=== PATIENT | female | born 1995 | race Caucasian/White ===

== ENCOUNTER 2016-11-30 21:48 | Inpatient (IN) | payer OTHER ==
[~2016-11-30] VITALS: Ht 154.9 cm; Wt 72.2 kg
[2016-11-30 22:50] LABS: HEMATOCRIT 44.8 % (36.0-46.0); MCH 28.5 PG (29.0-34.0); MCHC 33.3 G/DL (30.0-36.0); MCV 85.7 FL (83-99); MEAN PLAT.VOLUME 10.4 uM^3 (9.5-12.4); PLATELET COUNT 234 K/uL (156-360); RBC DIS.WIDTH-CV 13.7 % (11.8-14.6); RBC DIS.WIDTH-SD 42.5 % (39-53); RED BLOOD COUNT 5.23 M/uL (3.80-5.20); WHITE BLOOD COUNT 6.9 K/uL (4.1-10.2)
[2016-11-30 23:06] LABS: CHLORIDE 106 mEq/L (99-109); SODIUM 141 mEq/L (136-147)
[2016-11-30 23:08] LABS: GLUCOSE 101 mg/dL (70-99)
[2016-11-30 23:09] LABS: ANION GAP 8 MEQ/L (2-14)
[2016-11-30 23:12] LABS: GFR ESTIMATE (CALCULATED) > 59 mL/min/
[2016-11-30 23:13] LABS: UREA NITROGEN (BUN) 4 mg/dL (9-23)
[2016-11-30 23:15] LABS: TROP-I INTERPRETATION NEGATIVE; TROPONIN-I 0.01 ng/mL (0.0-0.30)
[2016-12-01 00:49] LABS: TOTAL BILIRUBIN 1.3 mg/dL (0.0-1.0)
[2016-12-01 00:50] LABS: ALKALINE PHOSPHATASE 214 IU/L (3-129)
[2016-12-01 00:53] LABS: DIRECT BILIRUBIN 0.8 mg/dL (0.0-0.3)
[2016-12-01 00:54] LABS: LIPASE 24 U/L (1.0-51.0)
[2016-12-01 04:00] VITALS: BP 130/75
[2016-12-01 07:28] LABS: ALKALINE PHOSPHATASE 211 IU/L (3-129); ANION GAP 9 MEQ/L (2-14); CHLORIDE 106 MEQ/L (99-109); GFR ESTIMATE (CALCULATED) > 59 mL/min/; GLUCOSE 92 mg/dL (70-99); POTASSIUM 3.9 MEQ/L (3.7-5.4); SAMPLE HEMOLYSIS CHECK 0; SAMPLE ICTERIC CHECK 0; SAMPLE LIPEMIA CHECK 0; SODIUM 141 MEQ/L (136-147); TOTAL BILIRUBIN 1.5 MG/DL (0.0-1.0); UREA NITROGEN (BUN) 6 mg/dL (9-23)
[2016-12-01 07:57] VITALS: BP 131/80
[2016-12-01 11:35] VITALS: BP 126/79
[2016-12-01 15:00] VITALS: BP 116/67
[2016-12-01 19:33] VITALS: BP 135/74
[2016-12-01 23:24] VITALS: BP 132/79
[2016-12-02 03:00] VITALS: BP 114/69
[2016-12-02 08:28] VITALS: BP 113/71
[2016-12-02 08:40] LABS: HEMATOCRIT 39.5 % (36.0-46.0); MCH 28.4 PG (29.0-34.0); MCHC 32.4 G/DL (30.0-36.0); MCV 87.8 FL (83-99); MEAN PLAT.VOLUME 10.5 uM^3 (9.5-12.4); PLATELET COUNT 169 K/uL (156-360); RBC DIS.WIDTH-CV 13.9 % (11.8-14.6); RBC DIS.WIDTH-SD 44.7 % (39-53); WHITE BLOOD COUNT 4.3 K/uL (4.1-10.2)
[2016-12-02 09:00] LABS: ALKALINE PHOSPHATASE 199 IU/L (3-129); ANION GAP 6 MEQ/L (2-14); CHLORIDE 106 MEQ/L (99-109); GFR ESTIMATE (CALCULATED) > 59 mL/min/; GLUCOSE 91 mg/dL (70-99); POTASSIUM 4.2 MEQ/L (3.7-5.4); SAMPLE HEMOLYSIS CHECK 0; SAMPLE ICTERIC CHECK 0; SAMPLE LIPEMIA CHECK 0; SODIUM 139 MEQ/L (136-147); TOTAL BILIRUBIN 0.7 MG/DL (0.0-1.0); UREA NITROGEN (BUN) 3 mg/dL (9-23)
[2016-12-02 10:57] VITALS: BP 122/77
[2016-12-02 16:05] VITALS: BP 131/83
[2016-12-02 23:33] VITALS: BP 125/73
[2016-12-03 04:06] VITALS: BP 109/56
[2016-12-03 05:41] LABS: CHLORIDE 108 mEq/L (99-109); POTASSIUM 4.2 mEq/L (3.7-5.4); SODIUM 141 mEq/L (136-147)
[2016-12-03 05:44] LABS: ANION GAP 8 MEQ/L (2-14)
[2016-12-03 05:45] LABS: GLUCOSE 116 mg/dL (70-99); TOTAL BILIRUBIN 0.5 mg/dL (0.0-1.0)
[2016-12-03 05:47] LABS: ALKALINE PHOSPHATASE 200 IU/L (3-129); GFR ESTIMATE (CALCULATED) > 59 mL/min/
[2016-12-03 05:48] LABS: UREA NITROGEN (BUN) 4 mg/dL (9-23)
[2016-12-03 05:57] LABS: HEMATOCRIT 37.1 % (36.0-46.0); MCH 29.5 PG (29.0-34.0); MCV 86.9 FL (83-99); MEAN PLAT.VOLUME 10.8 uM^3 (9.5-12.4); PLATELET COUNT 195 K/uL (156-360); RBC DIS.WIDTH-CV 13.6 % (11.8-14.6); RBC DIS.WIDTH-SD 42.9 % (39-53); RED BLOOD COUNT 4.27 M/uL (3.80-5.20); WHITE BLOOD COUNT 5.4 K/uL (4.1-10.2)
[2016-12-03 07:29] VITALS: BP 136/86
[2016-12-03] MEDS ORDERED: NORCO 5/3251 TABLET PO (09:58)
== END 2016-12-03 11:00 | disposition home or self-care (01) | DRG 419 ==
LOC: EME 21:48 → 2EAST 12-01 02:52 → EDOF 12-01 02:52 → 2EASTP 12-01 02:52 → ENRESERV 12-01 02:57 → 2EASTP 12-01 03:33 → 2EAST 12-01 15:05
PROVIDERS: Surgery
DX: K81.9 Cholecystitis, unspecified (principal); R74.8 Abnormal levels of other serum enzymes; K66.0 Peritoneal adhesions (postprocedural) (postinfection); E66.9 Obesity, unspecified; Z68.30 Body mass index [BMI] 30.0-30.9, adult
CPT/HCPCS: 71020; 76705; 80048; 80053; 80076; 83690; 84484; 84702; 85027; 88304; 93005; 99281; 99285; J0131; J0295; J1100; J1170; J1650; J1885; J2250; J2405; J2710; J3010; J3480; J7050; J7120